=== PATIENT | male | born 1995 | race African-American/Black ===

== ENCOUNTER 2017-10-16 07:14 | Emergency (ER) | payer OTHER ==
[~2017-10-16] VITALS: Ht 177.8 cm; Wt 93.5 kg
[2017-10-16 07:15] VITALS: TEMP 36.8; Ht 177.8 cm; Wt 93.5 kg
[2017-10-16 07:22] VITALS: O2SAT 98
--- NOTE | 2017-10-16 07:38 | EMERGENCY ROOM VISIT NOTE ---
History First contact with patient: 07:24 Chief Complaint: CHEST PAIN Stated Complaint: BAD CHEST PAIN,HURTS TO TAKE DEEP BREATH Nursing Triage Summary: Woke from chest pain History of Present Illness The patient is a 22 year old male who presents to the Emergency Room with complaints of one episode of chest discomfort which awoke him from sleep at approximately 2:30 AM. The patient states the discomfort was on the left side, describes it as a cramping sensation. He states he immediately sat up, and with deep breathing, the pain seemed to be worse. He denies any dyspnea, but states deep breathing did worsen the pain. He is not experiencing any pain now , and has not experienced any pain since this episode which lasted only approximately 3-5 minutes. Patient denies any recent travel, does not have a history of blood clots, denies leg swelling, and denies taking any hormonal supplements or smoking. He has never experienced this in the past, but states he does occasionally get sharp joint and muscle pains which last for a similar length of time. He states last night, he was eventually able to go back to sleep, but has been very concerned so decided to come here for evaluation. The patient denies any recent illness, but states for the past 24 hours, he has been experiencing a nonproductive cough. He denies any upper respiratory infection symptoms, chest pressure, difficulty breathing, wheezing, abdominal pain, nausea, vomiting, headache, or other concerning symptoms. Review of Systems A complete 10 point review of systems was reviewed with the patient with pertinent positives and negatives as per history of present illness. All else were negative. Past Medical/Surgical History None Social History Smoking Status: Never Smoker Smokeless Tobacco Use: No Alcohol Use: occasionally Drug Use: none Marital Status: single Housing Status: lives with roommate Allergies None Physical Exam Vital Signs Date Time Temp Pulse Resp B/P (MAP) Pulse Ox O2 Delivery O2 Flow Rate FiO2 10/16/17 09:37 55 18 119/73 98 10/16/17 08:17 60 18 130/79 97 Room Air 10/16/17 07:27 68 10/16/17 07:22 98 Room Air 10/16/17 07:16 98 Room Air 10/16/17 07:15 36.8 72 20 133/85 98 Room Air Physical Exam VITALS: Vitals are noted on the nurse's note and reviewed by myself. Vital signs stable. GENERAL: This is a 22-year-old black male, in no acute distress, nondiaphoretic , well-developed well-nourished. SKIN: The skin was without rashes, erythema, edema, or bruising. There is no tenting of the skin. Capillary reflex less than 2 seconds. HEAD: Normocephalic atraumatic. EARS: External auditory canals clear, tympanic membranes pearly olivo without erythema or effusion bilaterally. EYES: Pupils equal round and reactive to light and accommodation. Conjunctivae without injection, sclerae without icterus. Extraocular movements intact. NOSE: Patent, turbinates without inflammation or discharge. No sinus tenderness. MOUTH: Mucous membranes moist. Tonsils are not enlarged. Pharynx without erythema or exudate. Uvula midline. Airway patent. Tongue does not deviate. NECK: Supple without nuchal rigidity. No lymphadenopathy. No thyromegaly. Cervical spine is nontender. No JVD. HEART: Regular rate and rhythm without murmurs gallops or rubs. LUNGS: Clear to auscultation bilaterally without wheezes, rales or rhonchi. No dullness to percussion. No retractions or accessory muscle use. ABDOMEN: Positive bowel sounds x 4. Normal tympanic percussion. Soft, nontender, without masses or organomegaly. Mccullough sign negative. No guarding or rebound tenderness. MUSCULOSKELETAL: No muscle atrophy, erythema, or edema noted. Full range of motion without joint tenderness in all extremities. No tenderness to palpation , specifically, no tenderness of the chest wall. Normal gait. Strength 5/5 throughout. NEURO: Patient was alert and oriented to person place and time. Normal sensation to light and sharp touch. Deep tendon reflexes 2+ throughout. No focal neurological deficits. Medical Decision & Procedures ER Provider Diagnostic Interpretation: CBC without leukocytosis, anemia, thrombocytopenia. Urinalysis did not show any signs of infection. D-dimer test was negative. CMP did not show any renal, hepatic, or electrolyte abnormalities. Troponin, CK-MB testing negative. Thyroid testing negative. Lyme disease testing negative. CHEST 2 VIEWS ROUTINE CLINICAL HISTORY: Left chest pain dyspnea COMPARISON STUDY: No previous studies for comparison. FINDINGS: The bones soft tissues and hemidiaphragms are normal. The cardiomediastinal silhouette is normal. The lungs are clear. The pulmonary vasculature is normal. IMPRESSION: Negative chest. The above report was generated using voice recognition software. It may contain grammatical, syntax or spelling errors. Electronically signed by: Esequiel Gordillo M.D. 10/16/2017 8:06 AM Dictated Date/Time: 10/16/2017 8:05 AM Laboratory Results 10/16/17 07:28 Red Blood Count 5.90, Mean Corpuscular Volume 74.2, Mean Corpuscular Hemoglobin 27.8, Mean Corpuscular Hemoglobin Concent 37.4, Mean Platelet Volume 12.6, Neutrophils (%) (Auto) 37.7, Lymphocytes (%) (Auto) 48.9, Monocytes (%) (Auto) 10.9, Eosinophils (%) (Auto) 1.9, Basophils (%) (Auto) 0.4, Neutrophils # (Auto ) 2.02, Lymphocytes # (Auto) 2.61, Monocytes # (Auto) 0.58, Eosinophils # (Auto ) 0.10, Basophils # (Auto) 0.02 10/16/17 07:28 Test 10/16/17 07:28 10/16/17 07:33 10/16/17 09:25 White Blood Count 5.34 K/uL (4.8-10.8) Red Blood Count 5.90 M/uL (4.7-6.1) Hemoglobin 16.4 g/dL (14.0-18.0) Hematocrit 43.8 % (42-52) Mean Corpuscular Volume 74.2 fL (80-100) Mean Corpuscular Hemoglobin 27.8 pg (25-34) Mean Corpuscular Hemoglobin Concent 37.4 g/dl (32-36) Platelet Count 171 K/uL (130-400) Mean Platelet Volume 12.6 fL (7.4-10.4) Neutrophils (%) (Auto) 37.7 % Lymphocytes (%) (Auto) 48.9 % Monocytes (%) (Auto) 10.9 % Eosinophils (%) (Auto) 1.9 % Basophils (%) (Auto) 0.4 % Neutrophils # (Auto) 2.02 K/uL (1.4-6.5) Lymphocytes # (Auto) 2.61 K/uL (1.2-3.4) Monocytes # (Auto) 0.58 K/uL (0.11-0.59) Eosinophils # (Auto) 0.10 K/uL (0-0.5) Basophils # (Auto) 0.02 K/uL (0-0.2) RDW Standard Deviation 38.1 fL (36.4-46.3) RDW Coefficient of Variation 14.1 % (11.5-14.5) Immature Granulocyte % (Auto) 0.2 % Immature Granulocyte # (Auto) 0.01 K/uL (0.00-0.02) Anisocytosis PRESENT Target Cells 1+ D-Dimer < 190 ug/L FEU (0-500) Anion Gap 7.0 mmol/L (3-11) Est Creatinine Clear Calc Drug Dose 104.8 ml/min Estimated GFR () 92.3 Estimated GFR (Non- 79.7 BUN/Creatinine Ratio 9.4 (10-20) Calcium Level 9.5 mg/dl (8.5-10.1) Total Bilirubin 0.4 mg/dl (0.2-1) Aspartate Amino Transf (AST/SGOT) 19 U/L (15-37) Alanine Aminotransferase (ALT/SGPT) 45 U/L (12-78) Alkaline Phosphatase 57 U/L (45-117) Creatine Kinase MB 1.1 ng/ml (0.5-3.6) Troponin I < 0.015 ng/ml (0-0.045) Total Protein 7.8 gm/dl (6.4-8.2) Albumin 4.3 gm/dl (3.4-5.0) Globulin 3.5 gm/dl (2.5-4.0) Albumin/Globulin Ratio 1.2 (0.9-2) Thyroid Stimulating Hormone (TSH) 2.030 uIu/ml (0.300-4.500) Lyme Disease IgG Antibody NEG (NEG) Lyme Disease IgM Antibody NEG (NEG) Creatine Kinase MB Ratio (0-3.0) Urine Color YELLOW Urine Appearance CLEAR (CLEAR) Urine pH 5.5 (4.5-7.5) Urine Specific [place] 1.025 (1.000-1.030) Urine Protein NEG (NEG) Urine Glucose (UA) NEG (NEG) Urine Ketones TRACE (NEG) Urine Occult Blood NEG (NEG) Urine Nitrite NEG (NEG) Urine Bilirubin NEG (NEG) Urine Urobilinogen NEG (NEG) Urine Leukocyte Esterase NEG (NEG) ECG Indication: chest pain Rate (beats per minute): 68 Rhythm: normal sinus Findings: no acute ischemic change, no ectopy Comparison ECG Date: no prior available ED Course The patient seen and evaluated as above. IV access is obtained, labs drawn. EKG performed. I did offer the patient pain medication and he declines. All testing was reviewed by myself. EKG was reviewed and interpreted by myself. I discussed the findings with the patient at bedside. Discharge instructions reviewed, and patient was discharged home in good condition. Medical Decision This is a 22-year-old black male patient presents to the emergency department today complaining of one episode of chest discomfort which lasted approximately 3-5 minutes in the middle of the night. The pain did awaken him from sleep, and he states he was having difficulty getting a deep breath when he experienced the discomfort. There is no actual shortness of breath, no diaphoresis, no chest pressure, and the pain went away on its own as the patient worked on deep breathing and "coming myself down". The patient does not have any history of blood clots, recent travel, hormone or tobacco use. He has no cardiac history. The pain was described as a cramping sensation, and he was able to go to sleep after he x-rays the pain. It was not exertional. My primary concern here in the ED was a pulmonary embolus. The patient's workup here in the emergency department was negative. Given this, I suspect a musculoskeletal cause of the patient's discomfort. Etiologies such as cardiac ischemia, aortic dissection, pulmonary embolism, pneumonia, pneumothorax, musculoskeletal, infections, gastrointestinal, as well as others were entertained. Impression Primary Impression: Non-cardiac chest pain Departure Information Dispostion Home / Self-Care Condition GOOD Referrals No Doctor, Assigned (PCP) Patient Instructions ED Chest Pain NonCardiac, My [facility] Additional Instructions He was seen in the emergency department today for chest pain. Labs, imaging, and EKG did not reveal any significant abnormalities. Testing for blood clot was negative as well. You were asymptomatic while here in the emergency department. I suspect a musculoskeletal etiology of your discomfort. Ibuprofen(Motrin, Advil) may be used for fever or pain. Use 600mg every six hours as needed. Take with food. Avoid using more than 2400mg in a 24 hour period. Do not use 2400mg per day for more than three consecutive days without physician direction. Prolonged inappropriate use can lead to stomach upset or ulcers. (AND/OR) Acetaminophen(Tylenol) may be used for fever or pain. Use 1000mg every six hours as needed. Avoid using more than 3000mg in a 24 hour period. Follow-up with your primary care provider for reevaluation if you continue to experience intermittent discomfort. Return to the emergency department for significant chest pain, pressure, difficulty breathing, coughing up blood, fever, or other concerning symptoms.
[2017-10-16 08:02] LABS: BASO % 0.4 %; BASO ABS # 0.02 K/uL (0-0.2); EOS % 1.9 %; HEMATOCRIT 43.8 % (42-52); HEMOGLOBIN 16.4 g/dL (14.0-18.0); IG# 0.01 K/uL (0.00-0.02); LYMPH % 48.9 %; LYMPH ABS # 2.61 K/uL (1.2-3.4); MEAN CELL VOLUME 74.2 fL (80-100); MEAN CORPUSCULAR HEMOGLOBIN 27.8 pg (25-34); MEAN CORPUSCULAR HGB CONC 37.4 g/dl (32-36); MEAN PLATELET VOLUME 12.6 fL (7.4-10.4); MONO % 10.9 %; MONO ABS # 0.58 K/uL (0.11-0.59); NEUT % 37.7 %; NEUT ABS # 2.02 K/uL (1.4-6.5); PLATELET COUNT 171 K/uL (130-400); RED CELL DISTRIBUTION WIDTH CV 14.1 % (11.5-14.5); RED CELL DISTRIBUTION WIDTH SD 38.1 fL (36.4-46.3); WHITE BLOOD COUNT 5.34 K/uL (4.8-10.8)
--- NOTE | 2017-10-16 08:07 | DIAGNOSTIC IMAGING REPORT ---
CHEST 2 VIEWS ROUTINE CLINICAL HISTORY: Left chest pain dyspnea COMPARISON STUDY: No previous studies for comparison. FINDINGS: The bones soft tissues and hemidiaphragms are normal. The cardiomediastinal silhouette is normal. The lungs are clear. The pulmonary vasculature is normal. IMPRESSION: Negative chest. The above report was generated using voice recognition software. It may contain grammatical, syntax or spelling errors. Electronically signed by: Esequiel Gordillo M.D. 10/16/2017 8:06 AM Dictated Date/Time: 10/16/2017 8:05 AM
[2017-10-16 08:11] LABS: ALBUMIN 4.3 gm/dl (3.4-5.0); ALT/SGPT 45 U/L (12-78); BLOOD UREA NITROGEN 12 mg/dl (7-18); CALCIUM 9.5 mg/dl (8.5-10.1); CARBON DIOXIDE 25 mmol/L (21-32); CREATININE 1.27 mg/dl (0.60-1.40); GLUCOSE 85 mg/dl (70-99); POTASSIUM 3.7 mmol/L (3.5-5.1); SODIUM 138 mmol/L (136-145)
[2017-10-16 08:22] LABS: ALKALINE PHOSPHATASE 57 U/L (45-117); AST/SGOT 19 U/L (15-37); CKMB 1.1 ng/ml (0.5-3.6); TOTAL PROTEIN 7.8 gm/dl (6.4-8.2)
[2017-10-16 09:37] VITALS: BP 119/73; PULSE 55; O2SAT 98
== END 2017-10-16 09:37 | disposition home or self-care (01) ==
LOC: C.EDB 07:15 → C.EDA 09:37
DX: R07.89 Other chest pain (principal)